=== PATIENT | female | born 1980 | race American Indian/Alaskan Native ===

== ENCOUNTER 2018-06-16 15:01 | Outpatient (CLI) | payer MEDICAID, OTHER ==
[2018-06-16] MEDS ORDERED: LACTATED RINGERS 1,000 ML IV ONE (17:59)
[2018-06-16 21:53] VITALS: BP 132/83
== END 2018-06-16 20:40 | disposition home or self-care (01) ==
LOC: TRG 15:01
PROVIDERS: ATTEND Obstetrics & Gynecology
DX: O47.03 False labor before 37 completed weeks of gestation, third trimester (principal); Z3A.30 30 weeks gestation of pregnancy
CPT/HCPCS: 59025; 96360; J7120

== ENCOUNTER 2018-08-06 23:49 | Outpatient (CLI) | payer MEDICAID ==
[2018-08-07 00:09] VITALS: BP 129/61
== END 2018-08-07 00:46 | disposition home or self-care (01) ==
LOC: TRG 23:49
PROVIDERS: ATTEND Obstetrics & Gynecology
DX: O47.03 False labor before 37 completed weeks of gestation, third trimester (principal); O36.8130 Decreased fetal movements, third trimester, not applicable or unspecified; Z3A.37 37 weeks gestation of pregnancy
CPT/HCPCS: 59025